=== PATIENT | male | born 1985 | race Caucasian/White ===

== ENCOUNTER → 2022-01-12 09:28 | Outpatient (CLI) | payer OTHER, SELFPAY ==
--- NOTE | ~2022-01-12 | XR_ITS ---
EXAMINATION: XR sternum min 2V INDICATION: Acquired deformity of the chest and rib TECHNIQUE: Two views of the sternum are obtained. COMPARISON: None available FINDINGS: There is possible increased calcification at the fourth costochondral junction on the left. No definite fracture is identified. The visualized lungs are clear. IMPRESSION: 1. Possible increase calcification at the left fourth costochondral junction. Further evaluation with CT is recommended. Reviewed, dictated and finalized at location A. IMPRESSION: 1. Possible increase calcification at the left fourth costochondral junction. F urther evaluation with CT is recommended.
--- NOTE | ~2022-01-12 | US_ITS ---
US soft tissue upper back 01/12/2022 10:07 Indication: Acquired deformity of the right back Procedure: High-resolution Limited soft tissue ultrasound of the right back just inferior to the scap gisel Comparison: No prior studies for comparison. Findings: There is an oval circumscribed predominantly hypoechoic mass with internal horizontally sanchez ented striations measuring 3.2 x 4.2 x 0.9 cm. No posterior features or internal vascularity. Impression: 1: Oval circumscribed hypoechoic mass in the area of palpable concern with sonographic characteristic s which are compatible with benign lipoma. Reviewed, dictated and finalized at location B. Impression: 1: Oval circumscribed hypoechoic mass in the area of palpable concern with sono graphic characteristics which are compatible with benign lipoma.
== END ==
PROVIDERS: PCP Physician Assistant; Visit Provider Physician Assistant
DX: M95.4 Acquired deformity of chest and rib (principal); R22.9 Localized swelling, mass and lump, unspecified
CPT/HCPCS: 71120; 76604

== ENCOUNTER → 2022-02-04 15:42 | Outpatient (CLI) | payer OTHER, SELFPAY ==
--- NOTE | ~2022-02-04 | CT_ITS ---
EXAMINATION:CT diagnostic chest wo con DATE: 02/04/2022 15:57 INDICATION: Sternal mass. TECHNIQUE: Computed tomography (CT) of the chest was performed without intravenous contrast. Automate d exposure control and iterative reconstruction technique were employed. The dose-length product (DLP ) was 544.05 mGy-cm. COMPARISON: Sternum radiographs 01/12/2022 FINDINGS: There is mild dependent atelectasis bilaterally. The heart size is normal. No pericardial e ffusion. At the right third costosternal junction, there is a 3.8 x 2.8 x 2.5 cm calcified mass that is contiguous with the costosternal cartilage. IMPRESSION: 1. 3.8 x 2.8 x 2.5 cm calcified mass at the anterior right third rib cartilage suspicious for chondro sarcoma. Reviewed, dictated and finalized at location A. IMPRESSION: 1. 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
== END ==
PROVIDERS: PCP Physician Assistant; Visit Provider Physician Assistant
DX: R93.89 Abnormal findings on diagnostic imaging of other specified body structures (principal)
CPT/HCPCS: 71250

== ENCOUNTER → 2022-05-14 15:28 | Outpatient (CLI) | payer OTHER, SELFPAY ==
--- NOTE | ~2022-05-14 | CT_ITS ---
Clinical Indication: Right chest wall mass CT Scan of the Chest with Contrast: Technique: Contiguous sections were acquired throughout the chest after intravenous administration of 75 cc of Omnipaque 350. Dose reduction technique was used on this scan by utilizing automated exposu re control and iterative reconstruction technique. The dose-length product (DLP) was 480.31 mGy-cm. COMPARISON: 02/04/2022 Findings: There is no evidence of any significant mediastinal, hilar or axillary lymphadenopathy. There is no f illing defect in the pulmonary arterial tree to suggest pulmonary embolus. There is no evidence of ao rtic dissection or aneurysm. Again identified is a calcified mass arising from the anterior costal cartilage of the third rib, wit h a chondroid calcification pattern. Lesion measures approximately 3.9 x 2.7 cm, unchanged from recen t prior exam. There is no evidence of pleural or pericardial effusion. The lungs are clear. No pulmonary nodules or infiltrates are noted. Images through the upper abdomen reveal no abnormalities. Impression: Stable calcified mass at the anterior third costochondral cartilage region, again suspicious for denice drosarcoma. Reviewed, dictated and finalized at location [] [facility] Impression: Stable calcified mass at the anterior third costochondral cartilage region, aga in suspicious for chondrosarcoma.
== END ==
DX: R22.2 Localized swelling, mass and lump, trunk (principal)
CPT/HCPCS: 71260; Q9967

== ENCOUNTER → 2022-12-09 15:37 | Outpatient (CLI) | payer OTHER, SELFPAY ==
--- NOTE | ~2022-12-09 | CT_ITS ---
EXAMINATION: CT diagnostic chest wo con DATE: 12/09/2022 15:55 INDICATION: MASS OF R CHEST WALL TECHNIQUE: Computed tomography (CT) of the chest was performed without intravenous contrast. Addition al 3D reconstructions utilizing coronal maximum intensity projection (MIP) were performed. Automated exposure control and iterative reconstruction technique were employed. The dose-length product was 47 8.51 mGy-cm. COMPARISON: Chest CT dated 02/14/2022 FINDINGS: No interval change in a 3.7 x 2.7 cm mass arising inferiorly from the medial costochondral junction o f the right third rib which demonstrates typical and medullary continuity consistent with an osteocho ndroma. There is ring and arc-like calcified chondroid matrix within the cartilaginous cap. Which brittny sures less than 1.8 cm in maximal thickness from the region of cortical continuity. The pattern of ca lcified matrix is identical with no evident osteolysis or enlarging soft tissue component to suggest malignant transformation. No interval change in a 9 mm lytic lesion with narrow zone of transition and central macroscopic fat attenuation within the sternum most likely representing a small hemangioma. No other bone lesions olivia ntified. Normal variant azygos lobe and fissure in the right upper lung. No suspicious pulmonary nodu les, pneumonia, pulmonary edema or pleural effusion. Heart size is normal. No pericardial effusion. T horacic aorta is normal in caliber. No pathologically enlarged thoracic lymphadenopathy. Visualized upper abdomen is unremarkable. IMPRESSION: 1. No interval change in a 3.7 x 2.7 cm calcified mass arising from the anterior right third costocho ndral junction with imaging features most consistent with an osteochondroma. No findings to suggest m alignant transformation. Reviewed, dictated and finalized at location A. IMPRESSION: 1. No interval change in a 3.7 x 2.7 cm calcified mass arising from the anterio r right third costochondral junction with imaging features most consistent with an osteochondroma. No findings to suggest malignant transformation.
== END ==
DX: R22.2 Localized swelling, mass and lump, trunk (principal); M99.01 Segmental and somatic dysfunction of cervical region
CPT/HCPCS: 71250